=== PATIENT | female | born 1955 | race Caucasian/White ===

== ENCOUNTER 2016-10-30 14:15 | Emergency (ER) | payer MEDICAID ==
[2016-07-16 09:06] VITALS: BMI 38.4
[~2016-10-30 14:15] MED LIST: BACLOFEN10 MG PO; BAYER CHEWABLE81 MG PO; HYDROCODON-ACE1 EAC9 PO; LASIX40 MG PO; MAG-OX 400 MG400 MG PO; NEURONTIN800 MG PO; NIFEDIPINE ER90 MG PO; NORMODYNE / TR200 MG PO; NOVOLIN N100 U/ML SQ; PLAVIX75 MG PO; PRAVACHOL40 MG PO; TYLENOL PM1 TAB PO; VASOTEC10 MG PO; VIBRAMYCIN 100100 MG PO
[2016-10-30 15:18] LABS: BASOPHILS 0.2 % (0.0-2.0); EOSINOPHILS 1.9 % (0-7); HEMATOCRIT 36.4 % (36.0-48.0); HEMOGLOBIN 11.5 g/dL (12-16); IMMATURE GRANULOCYTES 0.2 % (0-5); LYMPHOCYTES 15.1 % (15-50); MCH 29.2 pg (26.0-34.0); MCHC 31.6 g/dL (31.0-37.0); MCV 92.4 fL (80.0-100.0); MEAN PLATELET VOLUME 10.4 fL (7.4-10.4); MONOCYTES 3.4 % (2-11); NEUTROPHILS 79.2 % (40-80); PLATELET COUNT 300 10x3/uL (130-400); RBC 3.94 10x6/uL (4.00-5.40); RDW 15.2 % (11.5-14.5); WBC 8.9 10x3/uL (4.8-10.8)
[2016-10-30 15:32] LABS: KETONE - SERUM NEGATIVE (NEGATIVE)
[2016-10-30 15:48] LABS: ALBUMIN 3.5 g/dL (3.4-5.0); ALKALINE PHOSPHATASE 123 U/L (46-116); ALT (SGPT) 27 U/L (10-68); BILIRUBIN - TOTAL 0.17 mg/dL (0.2-1.3); CALC OSMOLALITY 291 mosm/kg (275-300); CALCIUM 9.6 mg/dL (8.5-10.1); CARBON DIOXIDE 28.4 mmol/L (21.0-32.0); CHLORIDE - SERUM 103 mmol/L (98-107); CREATININE - SERUM 1.5 mg/dL (0.6-1.3); GLUCOSE 338 mg/dL (74-106); POTASSIUM - SERUM 5.7 mmol/L (3.5-5.1); PROTEIN - SERUM 7.3 g/dL (6.4-8.2); SODIUM 141 mmol/L (136-145); UREA NITROGEN 6 mg/dL (7-18); eGFR NON AFRICAN AMERICAN 37 mL/min (90-120)
[2016-10-30 15:50] LABS: AMYLASE - SERUM 61 U/L (25-115); CKMB 2.2 U/L (0.0-3.6); CREATINE KINASE 173 UL (21-215); LIPASE 190 U/L (73-393); PRO BNP 655 pg/mL (0-125)
[2016-10-30 15:51] LABS: TROPONIN-I < 0.017 ng/mL (0.000-0.060)
== END 2016-10-30 16:41 | disposition home or self-care (01) ==
LOC: D.ER 14:15
PROVIDERS: Family Medicine
DX: R11.10 Vomiting, unspecified (principal); M54.2 Cervicalgia; M54.5 Low back pain; M50.30 Other cervical disc degeneration, unspecified cervical region; J44.9 Chronic obstructive pulmonary disease, unspecified; E11.9 Type 2 diabetes mellitus without complications; Z79.4 Long term (current) use of insulin

== ENCOUNTER 2016-11-05 09:45 | Emergency (ER) | payer MEDICAID ==
[2016-07-16 09:06] VITALS: BMI 38.4
[2016-11-05 10:36] LABS: BASOPHILS 0.8 % (0.0-2.0); EOSINOPHILS 4.4 % (0-7); HEMATOCRIT 34.3 % (36.0-48.0); HEMOGLOBIN 10.7 g/dL (12-16); IMMATURE GRANULOCYTES 0.3 % (0-5); MCH 28.9 pg (26.0-34.0); MCHC 31.2 g/dL (31.0-37.0); MCV 92.7 fL (80.0-100.0); MEAN PLATELET VOLUME 10.1 fL (7.4-10.4); MONOCYTES 7.8 % (2-11); NEUTROPHILS 66.7 % (40-80); RDW 14.9 % (11.5-14.5); WBC 10.1 10x3/uL (4.8-10.8)
[2016-11-05 10:38] LABS: PLATELET COUNT 367 10x3/uL (130-400)
[2016-11-05 10:50] LABS: ALBUMIN 3.3 g/dL (3.4-5.0); ANION GAP 13.6 mmol/L (8-16); BILIRUBIN - TOTAL 0.23 mg/dL (0.2-1.3); CALCIUM 9.6 mg/dL (8.5-10.1); CARBON DIOXIDE 27.2 mmol/L (21.0-32.0); CREATININE - SERUM 1.5 mg/dL (0.6-1.3); POTASSIUM - SERUM 5.8 mmol/L (3.5-5.1); PROTEIN - SERUM 7.3 g/dL (6.4-8.2)
== END 2016-11-05 11:55 | disposition home or self-care (01) ==
LOC: D.ER 09:45
PROVIDERS: Emergency Medicine
DX: J44.1 Chronic obstructive pulmonary disease with (acute) exacerbation (principal); E87.5 Hyperkalemia; M54.5 Low back pain; M50.30 Other cervical disc degeneration, unspecified cervical region; E11.9 Type 2 diabetes mellitus without complications; Z79.4 Long term (current) use of insulin

== ENCOUNTER 2016-11-06 13:02 | Emergency (ER) | payer MEDICAID ==
[2016-07-16 09:06] VITALS: BMI 38.4
[2016-11-06 18:21] LABS: APPEARANCE CLEAR (CLEAR); BILIRUBIN NEGATIVE (NEGATIVE); COLOR YELLOW (YELLOW); GLUCOSE 50 mg/dL (NEGATIVE); KETONE NEGATIVE (NEGATIVE); LEUKOCYTE ESTERASE NEGATIVE (NEGATIVE); NITRITE NEGATIVE (NEGATIVE); PROTEIN 2+ mg/dL (NEGATIVE); SPECIFIC GRAVITY 1.015 (1.005-1.020); UROBILINOGEN NORMAL (NORMAL)
[2016-11-06 18:53] LABS: BASOPHILS 0.4 % (0.0-2.0); HEMATOCRIT 34.9 % (36.0-48.0); HEMOGLOBIN 10.8 g/dL (12-16); IMMATURE GRANULOCYTES 0.2 % (0-5); LYMPHOCYTES 19.5 % (15-50); MCH 28.9 pg (26.0-34.0); MCHC 30.9 g/dL (31.0-37.0); MCV 93.3 fL (80.0-100.0); MEAN PLATELET VOLUME 9.9 fL (7.4-10.4); MONOCYTES 7.7 % (2-11); NEUTROPHILS 65.2 % (40-80); PLATELET COUNT 384 10x3/uL (130-400); RBC 3.74 10x6/uL (4.00-5.40); RDW 14.6 % (11.5-14.5); WBC 10.6 10x3/uL (4.8-10.8)
[2016-11-06 19:09] LABS: ALBUMIN 3.4 g/dL (3.4-5.0); BILIRUBIN - TOTAL 0.31 mg/dL (0.2-1.3); CALCIUM 9.3 mg/dL (8.5-10.1); CARBON DIOXIDE 28.1 mmol/L (21.0-32.0); CREATININE - SERUM 1.6 mg/dL (0.6-1.3); PROTEIN - SERUM 8.2 g/dL (6.4-8.2)
[2016-11-06 19:12] LABS: ANION GAP 14.3 mmol/L (8-16); POTASSIUM - SERUM 4.4 mmol/L (3.5-5.1)
== END 2016-11-06 21:02 | disposition home or self-care (01) ==
LOC: D.ER 13:02
PROVIDERS: Physician Assistant Medical
DX: E11.8 Type 2 diabetes mellitus with unspecified complications (principal); Z79.4 Long term (current) use of insulin; K59.00 Constipation, unspecified; J44.9 Chronic obstructive pulmonary disease, unspecified; M50.30 Other cervical disc degeneration, unspecified cervical region

== ENCOUNTER 2017-01-14 08:53 | Emergency (ER) | payer MEDICAID ==
[2016-07-16 09:06] VITALS: BMI 38.4
[2017-01-14 10:34] LABS: ALBUMIN 3.1 g/dL (3.4-5.0); ANION GAP 16.8 mmol/L (8-16); BILIRUBIN - TOTAL 0.32 mg/dL (0.2-1.3); CALCIUM 8.8 mg/dL (8.5-10.1); CARBON DIOXIDE 22.5 mmol/L (21.0-32.0); CREATININE - SERUM 1.2 mg/dL (0.6-1.3); POTASSIUM - SERUM 5.3 mmol/L (3.5-5.1); PROTEIN - SERUM 7.2 g/dL (6.4-8.2)
[2017-01-14 12:16] LABS: BASOPHILS 0.6 % (0.0-2.0); EOSINOPHILS 7.4 % (0-7); HEMATOCRIT 34.8 % (36.0-48.0); HEMOGLOBIN 10.7 g/dL (12-16); IMMATURE GRANULOCYTES 0.4 % (0-5); LYMPHOCYTES 13.7 % (15-50); MCH 28.2 pg (26.0-34.0); MCHC 30.7 g/dL (31.0-37.0); MCV 91.6 fL (80.0-100.0); MONOCYTES 5.1 % (2-11); NEUTROPHILS 72.8 % (40-80); PLATELET COUNT 360 10x3/uL (130-400); RDW 16.2 % (11.5-14.5); WBC 8.6 10x3/uL (4.8-10.8)
== END 2017-01-14 14:05 | disposition home or self-care (01) ==
LOC: D.ER 08:53
PROVIDERS: Emergency Medicine
DX: L03.113 Cellulitis of right upper limb (principal); L02.413 Cutaneous abscess of right upper limb; M54.5 Low back pain; M54.2 Cervicalgia; J44.9 Chronic obstructive pulmonary disease, unspecified; M50.30 Other cervical disc degeneration, unspecified cervical region; E11.9 Type 2 diabetes mellitus without complications; Z79.4 Long term (current) use of insulin

== ENCOUNTER 2017-01-17 16:50 | Emergency (ER) | payer MEDICAID ==
[2016-07-16 09:06] VITALS: BMI 38.4
== END 2017-01-18 02:10 | disposition home or self-care (01) ==
LOC: D.ER 16:50
DX: J20.9 Acute bronchitis, unspecified (principal); J06.9 Acute upper respiratory infection, unspecified; M54.9 Dorsalgia, unspecified

== ENCOUNTER 2017-11-18 09:32 | Emergency (ER) | payer MEDICAID ==
[2016-07-16 09:06] VITALS: BMI 38.4
[2017-11-18 10:17] LABS: APPEARANCE CLEAR (CLEAR); BILIRUBIN NEGATIVE (NEGATIVE); COLOR YELLOW (YELLOW); GLUCOSE 250 mg/dL (NEGATIVE); KETONE NEGATIVE (NEGATIVE); NITRITE NEGATIVE (NEGATIVE); PROTEIN 3+ mg/dL (NEGATIVE); SPECIFIC GRAVITY 1.015 (1.005-1.020); UROBILINOGEN NORMAL (NORMAL)
[2017-11-18 10:19] LABS: BACTERIA FEW /hpf (NONE SEEN); EPITHELIAL CELLS 0-5 /hpf (0-5); RED CELLS - URINE 0-5 /hpf (0-5); WHITE CELLS - URINE 0-5 /hpf (0-5)
== END 2017-11-18 11:04 | disposition home or self-care (01) ==
LOC: D.ER 09:32
PROVIDERS: Family Medicine
DX: M54.5 Low back pain (principal); S39.012A Strain of muscle, fascia and tendon of lower back, initial encounter; X58.XXXA Exposure to other specified factors, initial encounter; Y93.89 Activity, other specified; Y92.89 Other specified places as the place of occurrence of the external cause; J44.9 Chronic obstructive pulmonary disease, unspecified; E11.9 Type 2 diabetes mellitus without complications; Z79.4 Long term (current) use of insulin